=== PATIENT | male | born 1985 | race African-American/Black ===

== ENCOUNTER 2016-08-22 07:16 | Emergency (ER) | payer MEDICAID ==
[~2016-08-22] VITALS: Ht 185.4 cm; Wt 95.0 kg
[2016-08-22 07:27] VITALS: BP 150/88
[2016-08-22] MEDS ORDERED: LIDOCAINE HCL/EPINEPHRINE 1%-EPI 1:100,000 20 ML VIAL INFIL ONE (09:15)
[2016-08-22] MEDS ORDERED: LIDOCAINE HCL/EPINEPHRINE 1%-EPI 1:100,000 20 ML VIAL INFIL NR (09:30)
== END 2016-08-22 10:45 | disposition home or self-care (01) ==
LOC: ER 07:57
DX: L02.31 Cutaneous abscess of buttock (principal)
CPT/HCPCS: 10060; 99283; J3490; Z7610; 56405; 99284

== ENCOUNTER 2016-11-28 07:10 | Emergency (ER) | payer MEDICAID ==
[~2016-11-28] VITALS: Ht 185.4 cm; Wt 91.0 kg
[2016-11-28 09:08] LABS: CLARITY URINE CLEAR (CLEAR); COLOR URINE YELLOW (YELLOW); KETONES URINE NEGATIVE (NEGATIVE); LEUKOCYTE ESTERASE URINE 2+ (NEGATIVE); NITRITE URINE NEGATIVE (NEGATIVE); OCCULT BLOOD URINE NEGATIVE (NEGATIVE); PH URINE 5.5 (4.5-8.0); PROTEIN URINE NEGATIVE (NEGATIVE); SPECIFIC GRAVITY URINE 1.018 (1.005-1.030); UROBILINOGEN URINE 0.2 E.U./dL (0.2-1.0)
[2016-11-28] MEDS ORDERED: CEFTRIAXONE SODIUM 250 MG/VIAL IM ONE (10:15)
[2016-11-28] MEDS ORDERED: AZITHROMYCIN 500 MG TABLET PO ONE (10:15)
[2016-11-28 10:42] VITALS: BP 152/80
== END 2016-11-28 11:52 | disposition home or self-care (01) ==
LOC: ER 07:26
DX: N45.1 Epididymitis (principal); N39.0 Urinary tract infection, site not specified; N43.3 Hydrocele, unspecified; F12.10 Cannabis abuse, uncomplicated; F17.210 Nicotine dependence, cigarettes, uncomplicated
CPT/HCPCS: 76870; 81001; 93976; 96372; 99285; J0696; Z7610

== ENCOUNTER 2018-02-10 01:02 | Emergency (ER) | payer SELFPAY ==
[~2018-02-10] VITALS: Ht 188 cm; Wt 102.0 kg
[2018-02-10] MEDS ORDERED: MORPHINE SULFATE 4 MG/ML CPJ (NOT FOR IM USE) IV STA (01:46)
[2018-02-10] MEDS ORDERED: SODIUM CHLORIDE 0.9% 1,000 ML IV ONE ×2 (01:46)
[2018-02-10] MEDS ORDERED: ONDANSETRON HCL 4MG/2ML INJ IV STA (01:46)
[2018-02-10] MEDS ORDERED: KETOROLAC 30MG/ML VIAL IV STA (01:46)
[2018-02-10] MEDS ORDERED: BACITRACIN ZINC OINT UDPKT TOP ONE (02:00)
[2018-02-10] MEDS ORDERED: LIDOCAINE 1%/EPI 1:100,000 10 ML VIAL IJ ONE (02:00)
[2018-02-10 05:00] VITALS: BP 134/88
== END 2018-02-10 05:17 | disposition home or self-care (01) ==
LOC: ER 01:02
DX: L02.31 Cutaneous abscess of buttock (principal); F12.10 Cannabis abuse, uncomplicated; F17.200 Nicotine dependence, unspecified, uncomplicated
CPT/HCPCS: 10060; 96374; 96375; 99285; J2270; J2405; J3490; J7030; X7700; Z7610